=== PATIENT | male | born 1995 | race Caucasian/White ===

== ENCOUNTER 2016-04-30 15:43 | Emergency (ER) | payer OTHER ==
[~2016-04-30] VITALS: Ht 188 cm; Wt 136.4 kg
[2016-04-30 16:31] VITALS: BP 142/80; PULSE 91; RESP 16; O2SAT 97
[2016-04-30 17:44] LABS: APPEARANCE,URINE CLEAR (CLEAR,HAZY); COLOR,URINE YELLOW (YELLOW); PH,URINE 6.5 (5.0-8.0)
[2016-04-30 17:45] LABS: OCCULT BLOOD,URINE NEGATIVE (NEGATIVE); UROBILINOGEN,URINE NORMAL (NORMAL)
--- NOTE | 2016-04-30 18:00 | ED.REPORT ---
HPI- Male Date of Service Apr 30, 2016 ED Provider: Preston Barr MD Pt is a 21 y/o male w/ a hx of type 2 diabetes, hypothyroid, presenting to the ED with his block and case maker c/o gross hematuria onset 2 days ago. He had 1 episode 2 weeks ago which is confirmed by his assistant case manager. He c/o associated mild lower abdominal pain for 2 days. Pt denies nausea, vomiting, diarrhea. He denies bloody stool. He has no history of bladder or kidney disease. The patient lives with caretakers because he needs help with his emotions. Nursing Notes Stated Complaint: BLOOD IN URINE Chief Complaint: General Complaint Nursing Notes Reviewed: Yes Allergies: Coded Allergies: No Known Allergies (Unverified Allergy, Unknown, 11/13/13) General Time Seen by MD: 17:57 Chief Complaint Blood in urine Hx Obtained From: Patient Arrived By: Walk-in Onset Occurred: 2 days ago Symptom Duration: Intermittent Location: : Abdomen lower Quality: Painful Severity: Current: Mild Severity: Maximum: Mild Past Medical History Past Medical History Type 2 diabetes Hx gross hematuria Hypothyroid Behavioral problem - lives with caretakers Past Surgical History None reported Smoking History Never Smoker Social History Lives with caretakers Alcohol Use: Denies alcohol use Ambulatory Status Independent Review of Systems Constitutional: Denies: Chills, Fever GI: Reports: Abdominal pain, Denies: Diarrhea, Nausea, Vomiting Male: Reports Hematuria Complete sys rev & neg: except as marked. Physical Exam Initial Vital Signs Vital Signs (First) Date Time Temp Pulse Resp B/P Pulse Ox O2 Delivery O2 Flow Rate FiO2 04/30/16 16:31 36.1 91 16 142/80 97 Room Air Initial VS: Reviewed, Vital signs normal Head / Eyes: Atraumatic, Normocephalic, PERRL ENT: Mucous membranes moist, Conjunctiva normal, No scleral icterus Neck: Supple, Full range of motion Respiratory: Breath sounds normal, Clear to auscultation, No respiratory distress Cardiovascular: Regular rate & rhythm, Heart sounds normal, Intact distal pulses Abdomen / GI: Soft, Non-tender, No guarding, No rebound, No distention Extremities: Vascular intact, Neuro intact, No swelling, No tenderness Skin: Warm, Dry, No cyanosis Neurologic: Alert, Oriented, Nonfocal Psychiatric: Mood/affect normal, Behavior normal, Normal thought content MALE : Exam deferred General/Constitutional: Awake, Alert, No acute distress, Well appearing, Cooperative, Not toxic appearing Interpretation & Diagnostics Lab Results Interpretation Test 04/30/16 17:11 Urine Color Yellow (YELLOW) Urine Appearance Clear (CLEAR,HAZY) Urine pH 6.5 (5.0-8.0) Urine Specific [place] 1.025 (1.003-1.035) Urine Protein Negativemg/dL (NEG,TRACE) Urine Glucose (UA) Negativemg/dL (NEGATIVE) Urine Ketones Negativemg/dL (NEGATIVE) Urine Occult Blood Negative (NEGATIVE) Urine Nitrite Negative (NEGATIVE) Urine Bilirubin Negative (NEGATIVE) Urine Urobilinogen Normalmg/dL (NORMAL) Urine Leukocyte Esterase Negative (NEGATIVE) Urine RBC 0-2/hpf (0-2) Urine WBC 0-5/hpf (0-5) Urine Epithelial Cells Occasional/hpf (NONE-MOD) Urine Crystals None seen (NONE SEEN) Urine Bacteria Few/hpf (NONE-FEW) Urine Hyaline Casts None/lpf (NONE) Urine Granular Casts None seen (NONE SEEN) Urine Waxy Casts None seen (NONE SEEN) Urine Red Blood Cell Casts None seen (NONE SEEN) Urine White Blood Cell Casts None seen (NONE SEEN) Urine Mucus None seen (None Seen) Urine Trichomonas None seen (NONE SEEN) Urine Yeast None (NONE SEEN) Urinalysis Comment None Urine Culture Reflexed Not indicated Hold Urine Received (Received) Re-Eval/Medical Decision Re-Evaluation/Progress : Time of Eval: 19:46 Re-Evaluation/Progress Note: Pt rechecked. Informed pt of plan for treatment. Pt understands and agrees with plan for treatment. F/U instructions and RTER warnings given. All questions addressed. Counseled Regarding: Diagnosis, Lab results, Need for follow-up, When/why to return to ED Discharge & Departure Impression: Primary Impression: Gross hematuria Disposition: Home Discharge Condition All VS Reviewed: Yes Condition: Stable Patient Instructions: Acute Hematuria (ED) Additional Instructions: Your urine analysis today was normal. There was no signs of blood both visually and microscopically. This problem needs to be evaluated further. Make an appointment with Dr. Couch in follow-up in the coming 1 or 2 weeks. Follow-up right away for severe pain or fever or vomiting. Referrals: Dulce Couch MD (PCP) Scribe Attestation Portions of this note were transcribed by Anam Briseno. I, Dr. Barr personally performed the history, physical exam and medical decision-making; I reviewed and confirmed the accuracy of the information in the transcribed note. Signed by Dayami Easley, 04/30/161829 copies to: Dulce Couch MD, Kirk H MD Apr 30, 2016 18:00 ANAM BRISENO Apr 30, 2016 18:18
[2016-04-30 19:56] VITALS: BP 124/59; PULSE 88; O2SAT 97
[2016-04-30 20:09] VITALS: BP 124/59; PULSE 88; RESP 16; O2SAT 97
== END 2016-04-30 20:11 | disposition home or self-care (01) ==
LOC: SED 15:43
DX: R31.0 Gross hematuria (principal); R10.30 Lower abdominal pain, unspecified; E11.9 Type 2 diabetes mellitus without complications; E03.9 Hypothyroidism, unspecified